=== PATIENT | female | born 2000 | race Caucasian/White ===

== ENCOUNTER 2023-08-18 16:11 | Emergency (ER) | payer MEDICAID, SELFPAY ==
[2023-08-18 16:19] VITALS: BP 116/78; PULSE 54; RESP 14; TEMP 36.9; O2SAT 99
--- NOTE | 2023-08-18 17:00 | W.ED.BACK ---
HPI - Back Pain/Injury General: Chief Complaint: Back Pain/Injury Stated Complaint: back pains Time Seen by Provider: 08/18/23 16:49 Source: patient Mode of arrival: ambulatory History of Present Illness: 22-year-old female comes in complaining of back pain for the last couple weeks has been taking [id number] medications. 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 She has not had any urinary retention or fecal incontinence no saddle paresthesias. She does have pain that radiates into the left upper leg. No trauma or fall. No previous advanced imaging surgeries or injections to her low back. MD elicited complaint: back pain Onset (ago): week(s) (2) Associated symptoms: Deny abdominal pain, chills, dysuria, fever(s) or urinary urgency Review of Systems Const: Denies: fever(s) or chills Card: Denies: chest pain Resp: Denies: dyspnea GI: Denies: abdominal pain : Denies: dysuria, urinary frequency or urinary urgency Musc: Reports: back pain; Denies: neck pain Skin/Breast: Denies: rash Physical Exam Const: GENERAL APPEARANCE: cooperative ORIENTATION/CONSCIOUSNESS: Yes awake, Yes oriented to person, Yes oriented to place and Yes oriented to time HENMT: COMMON NORMALS: normocephalic, atraumatic and hearing grossly normal bilaterally HEAD & SCALP: normocephalic and atraumatic Resp: COMMON NORMALS: normal respiratory effort, No retractions, No use of accessory muscles and clear to auscultation bilaterally AUSCULTATION: clear to auscultation bilaterally Cardio: COMMON NORMALS: regular rate, regular rhythm and No murmurs present (Cardio) RATE: regular rate RHYTHM: regular rhythm Extremity: COMMON NORMALS: normal to inspection, capillary refill normal, no clubbing, cyanosis or edema, no calf tenderness and no pedal edema Neuro: SENSORIUM/ORIENTATION: Yes oriented to person, Yes oriented to place and Yes oriented to time DEEP TENDON REFLEXES: Right patellar reflex intensity grade: 1+ and Left patellar reflex intensity grade: 1+ OTHER: Sensation lower extremities dorsal and plantarflexion strength all are normal. No foot drop. Moderately positive straight leg raising on the left leg. Skin: COMMON NORMALS: no rashes or lesions noted GENERAL SKIN EXAM: no rashes or lesions noted Course Vital Signs: Vital signs: Vital Signs Temperature 98.5 F 08/18/23 16:19 Pulse Rate 50 L 08/18/23 18:10 Respiratory Rate 16 08/18/23 18:10 Blood Pressure 124/76 08/18/23 18:10 Pulse Oximetry 100 08/18/23 18:10 Oxygen Delivery Me thod Room Air 08/18/23 18:10 MDM - Back Pain/Injury Medical Decision Making Back pain improved. Reviewed with the patient she has no red flag history or symptoms or exam findings. No imaging indicated at this time treat medically. If symptoms persist follow-up with her primary care doctor may need advanced imaging or referral to PT as felt appropriate. Medical Records I reviewed the patient's medical records. Labs I reviewed the patient's lab results. No radiology studies performed this visit Discharge Plan Discharge Patient Disposition: Home Clinical Impression: Lumbar radiculopathy Condition: Stable Prescriptions: New tizanidine 4 mg tablet 4 mg PO Q6H PRN (Reason: muscle spasticity) Qty: 20 0RF Rx Instructions: do not exceed 3 doses per 24 hrs prednisone 20 mg tablet 20 mg PO TID Qty: 15 0RF Rx Instructions: 1 p.o. 3 times daily x3 days, 1 p.o. twice daily x2 days, 1 p.o. daily x2 days tramadol 50 mg tablet 50 mg PO Q6H PRN (Reason: pain) Qty: 14 0RF Discharge Orders: Discharge ED (Routine); Ordered 08/18/23 Ordered By: Brandon Briscoe Referrals: Dariela Solomon FNP [Primary Care Provider] - Discharge Diet: Usual diet Discharge Activity: Limit activity as instructed Patient Instructions: Lumbar Radiculopathy (ED), Opioid Safety, Pain Management Activity Restrictions/Additional Instructions: Thank you for choosing [facility] for your healthcare needs today. Please realize this is an emergency room and that we are providing you with a medical screening exam and this may not be complete and all inclusive of all the testing and or work up that you may need to determine your ailment or severity of your illness. It is very important that you follow up as instructed or that you return to the Emergency Department should you have concerns or if your condition changes or worsens in any way. You were seen today for low back pain. On your exam and history there were no red flag findings suggestive of cord impingement. You are given medications to help with the back pain. Recommend you follow-up with your primary care doctor if it is not improving they can reevaluate you and determine if advanced imaging or referral to physical therapy would be appropriate Coding Level of Care Code ED Machine Wood Sander for Jose Cai
[2023-08-18] MEDS: ketorolac 30 mg/mL INJ IVP (17:20)
[2023-08-18] MEDS: orphenadrine 30 mg/mL Inj 2 mL 60 MG IVP (17:20)
[2023-08-18 17:21] VITALS: RESP 20; O2SAT 97
[2023-08-18] MEDS: dexamethasone 10 mg/mL INJ IVP (17:21)
[2023-08-18] MEDS: morphine 4 mg/mL SDV 1 mL IVP ×2 (17:21→18:08)
[2023-08-18 17:30] VITALS: BP 124/76; PULSE 55; RESP 18; O2SAT 98
[2023-08-18 18:08] VITALS: RESP 16; O2SAT 94
[2023-08-18 18:10] VITALS: BP 124/76; PULSE 50; RESP 16; O2SAT 100
--- NOTE | 2023-08-24 10:53 | DCPLANNER ---
Patient called on 08/24/23 at 1053 wanting to establish care with a PCP. I sent a message to the [facility] on 08/24/23 [id number]
== END 2023-08-18 18:48 | disposition home or self-care (01) ==
PROVIDERS: Emergency Provider Family Medicine; PCP Nurse Practitioner
DX: M54.16 Radiculopathy, lumbar region (principal)
CPT/HCPCS: 96374; 96375; 96376; 99284; J1100; J1885; J2270; J2360

== ENCOUNTER → 2023-09-12 10:34 | Outpatient (BNVA) | payer BC, SELFPAY | PROVIDERS: PCP Nurse Practitioner Family; Visit Provider Nurse Practitioner Family | DX: Z13.6 Encounter for screening for cardiovascular disorders; Z79.899 Other long term (current) drug therapy | CPT/HCPCS: 80053; 80061; 81003; 83036; 84443; 85025 ==

== ENCOUNTER → 2023-11-06 09:10 | Outpatient (BNVA) | payer BC, SELFPAY | PROVIDERS: PCP Nurse Practitioner Family; Visit Provider Nurse Practitioner Family | DX: Z79.899 Other long term (current) drug therapy (principal); Z13.6 Encounter for screening for cardiovascular disorders | CPT/HCPCS: 81003 ==

== ENCOUNTER → 2023-11-07 09:23 | Outpatient (BNVA) | payer BC, SELFPAY | PROVIDERS: PCP Nurse Practitioner Family; Visit Provider Nurse Practitioner Family | DX: R74.8 Abnormal levels of other serum enzymes (principal); R39.9 Unspecified symptoms and signs involving the genitourinary system; M54.9 Dorsalgia, unspecified | CPT/HCPCS: 80053; 81003 ==

== ENCOUNTER 2023-12-15 15:05 | Outpatient (CLI) | payer BC, SELFPAY ==
--- NOTE | 2023-12-15 15:17 | XRR_ITS ---
PROCEDURE INFORMATION: Exam: XR Lumbosacral Spine Exam date and time: 12/15/2023 3:21 PM Age: 23 years old Clinical indication: Low back pain; Patient HX: Sharp back pain, going from sitting to standing hurts; Additional info: M54.16 - radiculopathy, lumbar region TECHNIQUE: Imaging protocol: Radiologic exam of the lumbosacral spine. Views: 6 or more views. Including flexion and extension views. COMPARISON: No relevant prior studies available. FINDINGS: Bones/joints: There is [id number] posterior wedging of the L5 vertebral body. The remainder of the vertebral body heights and alignment maintained. There is no significant change in alignment on the flexion or extension views. There is mild degenerative disc disease at L4-L5. There is levo scoliosis measuring 5 degrees. Soft tissues: Unremarkable. XR/XR lumbar spine 6V w [id number]/e [id number] IMPRESSION: 1. [id number] posterior wedging of the L5 vertebral body. 2. Alignment is maintained. 3. Mild degenerative disc disease at L4-L5.
== END 2023-12-15 15:06 | disposition home or self-care (01) ==
LOC: RAD 15:08
PROVIDERS: PCP Nurse Practitioner Family; Visit Provider Nurse Practitioner Family
DX: M54.16 Radiculopathy, lumbar region (principal); S32.050A Wedge compression fracture of fifth lumbar vertebra, initial encounter for closed fracture; M41.86 Other forms of scoliosis, lumbar region
CPT/HCPCS: 72114